=== PATIENT | male | born 1990 | race African-American/Black ===

== ENCOUNTER 2024-08-21 17:09 | Emergency (ER) | payer OTHER ==
[~2024-08-21] VITALS: Ht 167.6 cm; Wt 90.7 kg
[2024-08-21] MEDS ORDERED: LORAZEPAM 1 MG TABLET ONE (17:47)
[2024-08-21] MEDS: LORAZEPAM 1 MG TABLET PO ONE (17:50)
[2024-08-21 18:25] VITALS: BP 139/84; TEMP 97.8; O2SAT 99
== END 2024-08-21 18:25 | disposition home or self-care (01) ==
LOC: ER 17:22
DX: F19.10 Other psychoactive substance abuse, uncomplicated (principal); F41.9 Anxiety disorder, unspecified; Z79.899 Other long term (current) drug therapy; Z60.2 Problems related to living alone
CPT/HCPCS: 82962-TC